=== PATIENT | female | born 1985 | race Caucasian/White ===

== ENCOUNTER 2022-12-02 07:42 | Outpatient (CLI) | payer OTHER ==
[2022-12-02 08:37] LABS: GTT GLUCOSE,FASTING 89 mg/dL (74-109)
== END 2022-12-02 07:43 | disposition home or self-care (01) ==
LOC: LAB 07:42
PROVIDERS: ATTEND Obstetrics & Gynecology
DX: O99.810 Abnormal glucose complicating pregnancy (principal); O09.519 Supervision of elderly primigravida, unspecified trimester; Z36.89 Encounter for other specified antenatal screening
CPT/HCPCS: 36415; 82951; 82952

== ENCOUNTER 2022-12-24 14:17 | Outpatient (CLI) | payer OTHER ==
[2022-12-24 14:31] LABS: HCT - HEMATOCRIT 37.1 % (37.0-47.0); HGB - HEMOGLOBIN 12.1 g/dL (12.0-16.0); MEAN CORPUSCULAR HEMOGLOBIN 28.1 pg (27.0-31.0); MEAN CORPUSCULAR HGB CONC 32.6 g/dL (32.0-36.0); MEAN CORPUSCULAR VOLUME 86.3 fL (81.0-99.0); MEAN PLATELET VOLUME 9.3 fL (7.9-10.8); RED BLOOD COUNT 4.3 10^6/uL (4.20-5.40); RED CELL DISTRIBUTION WIDTH 13.2 % (12.0-15.0); WHITE BLOOD COUNT 9.8 x10^3/uL (4.8-10.8)
[2022-12-24 14:55] LABS: CREATININE,URINE 129.3 mg/dL; PROTEIN/CREATININE RATIO,URINE 0.3 (<=0.2)
[2022-12-24 14:56] LABS: ALBUMIN 3.6 g/dL (3.2-5.5); BILIRUBIN,TOTAL 0.2 mg/dL (0.2-1.0); CALCIUM 9.5 mg/dL (8.5-10.3); CREATININE 0.5 mg/dL (0.6-1.3); POTASSIUM 3.8 mmol/L (3.5-4.5); TOTAL PROTEIN 7.1 g/dL (6.4-8.9)
== END 2022-12-24 14:18 | disposition home or self-care (01) ==
LOC: LAB 14:17
PROVIDERS: ATTEND Nurse Practitioner
DX: N02.8 Recurrent and persistent hematuria with other morphologic changes (principal)
CPT/HCPCS: 36415; 80053; 82570; 84156; 85027

== ENCOUNTER 2022-12-30 19:06 | Outpatient (CLI) | payer OTHER ==
--- NOTE | 2022-12-31 22:46 | Ultrasound Report ---
PROCEDURE: OB F/U or Repeat INDICATIONS: EGA NEPHROPATHY, ABNORMAL US OUTSIDE/PRIOR DATING DATA: Last menstrual period (LMP): 05/12/2022. LMP-based estimated date of delivery (ARMANDO): 02/16/2023. First dating scan (date and location): 12/30/2022. Estimated date of delivery (ARMANDO) from first dating scan: 02/16/2023. TECHNIQUE: Real-time scanning was performed of the fetus, with image documentation and biometric measurements. Endovaginal scanning: Not performed. COMPARISON: None available for review FINDINGS: General: A single living intrauterine gestation is present. Presentation: Transverse to maternal right Placenta: Placental position is fundal, without previa. Amniotic fluid index: 16.1 cm, within normal limits for gestational age. heart rate: 153 beats per minute. Maternal cervical canal: 3.7 cm long; normal length is 2.5 cm or more. biometrics: Biparietal diameter: 8.8 cm, 35 weeks and 4 days Head circumference: 32.7 cm, 37 weeks and 1 day Abdominal circumference: 31.0 cm, 35 weeks and 0 days Femur length: 2.8 cm, 35 weeks and 0 days Estimated gestational age from initial scan: 33 weeks and 1 day Composite gestational age from present scan: 35 weeks and 5 days Estimated weight and percentile: 2640 which correlates with the 95th percentile for gestational age. Measurement variability in biometric dating: +/- 10 days from 12-20 weeks gestation, +/- 2 weeks from 20-30 weeks gestation, +/- 3 weeks at 30 weeks gestation or more. Other: S/D ratios measure 1.91 at the placenta, 2.67 at the mid cord, and 3.04 at the insertio n. These are within normal limits for gestational age. IMPRESSION: Single living intrauterine gestation with estimated sonographic gestational age of appro ximately 35 weeks and 5 days versus approximately 33 weeks and 1 day by initial outside imaging. Inte rval growth is within normal limits. Estimated weight of approximately 26[address] the fetus within the 95th percentile. Four-quadrant ACACIA measuring 16.1 cm (62nd percentile) Normal cord Doppler waveforms and S/D ratios. Reviewed by: Elijah Mulligan MD on 12/31/2022 10:45 PM PDT Approved by: Elijah Mulligan MD on 12/31/2022 10:45 PM PDT Station ID: [id number]
== END 2022-12-30 19:07 | disposition home or self-care (01) ==
LOC: DI 19:06
PROVIDERS: ATTEND Nurse Practitioner
DX: O99.891 Other specified diseases and conditions complicating pregnancy (principal); N02.8 Recurrent and persistent hematuria with other morphologic changes; O28.3 Abnormal ultrasonic finding on antenatal screening of mother; Z3A.35 35 weeks gestation of pregnancy

== ENCOUNTER 2023-01-04 07:34 | Outpatient (CLI) | payer OTHER | END 2023-01-04 07:35 | disposition home or self-care (01) | LOC: LAB.R 07:34 | PROVIDERS: ATTEND Nurse Practitioner | DX: O12.13 Gestational proteinuria, third trimester (principal); O99.891 Other specified diseases and conditions complicating pregnancy; N02.8 Recurrent and persistent hematuria with other morphologic changes | CPT/HCPCS: 81599; 82570; 84156 ==

== ENCOUNTER 2023-01-19 17:04 | Outpatient (CLI) | payer OTHER ==
--- NOTE | 2023-01-20 12:13 | Ultrasound Report ---
PROCEDURE: OB Biophysical Profile INDICATIONS: OBESITY OUTSIDE/PRIOR DATING DATA: Last menstrual period (LMP): 05/12/2022. LMP-based estimated date of delivery (ARMANDO): 02/16/2023. First dating scan (date and location): 12/30/2022. Estimated date of delivery (ARMANDO) from first dating scan: 02/16/2023. The below data below was generated using the working ARMANDO of 02/16/2023 TECHNIQUE: Real-time scanning was performed of the fetus, with image documentation and biometric rod surements. Biophysical profile was also obtained. Endovaginal scanning: None COMPARISON: None. FINDINGS: General: A single living intrauterine gestation is present. Presentation: Breech Placenta: Placental position is anterior, without previa. Amniotic fluid index: 21.2 cm, normal for gestational age. heart rate: 150 beats per minute. Maternal cervical canal: Closed Estimated gestational age from initial scan: 36 week 0 day. Biophysical profile: Tone: 2 points. Movement: 2 points. Respiration: 0 points. Largest pocket of fluid: 2 points. Umbilical artery Doppler: 2.6, 2.7, 2.5 IMPRESSION: Single live intrauterine consistent with 36 week 0 day gestation. Biophysical profile score 6 out of 8. respiratory motion was observed during the exam. Unremarkable umbilical artery ratios Reviewed by: Paulino Peres MD on 01/20/2023 11:12 AM TAHMIN[facility] Approved by: Paulino Peres MD on 01/20/2023 11:12 AM TAHMINA Station ID: [id number]
== END 2023-01-19 17:05 | disposition home or self-care (01) ==
LOC: DI 17:04
PROVIDERS: ATTEND Obstetrics & Gynecology
DX: O99.213 Obesity complicating pregnancy, third trimester (principal); Z3A.36 36 weeks gestation of pregnancy

== ENCOUNTER 2023-01-20 08:00 | Outpatient (CLI) | payer OTHER | END 2023-01-20 23:59 | disposition home or self-care (01) | LOC: LAB.WC 08:00 | PROVIDERS: ATTEND Nurse Practitioner | DX: Z36.85 Encounter for antenatal screening for Streptococcus B (principal); O99.891 Other specified diseases and conditions complicating pregnancy; N02.8 Recurrent and persistent hematuria with other morphologic changes | CPT/HCPCS: 36415; 80053; 82570; 84156; 84550; 85025; 87081; 87181; 87797 ==

== ENCOUNTER 2023-01-20 14:21 | Outpatient (CLI) | payer OTHER ==
[2023-01-20 14:35] LABS: BASOPHILS % (AUTO) 0.1 %; EOSINOPHILS # (AUTO) 0.1 10^3/uL (0.0-0.7); EOSINOPHILS % (AUTO) 0.8 %; HCT - HEMATOCRIT 38.3 % (37.0-47.0); HGB - HEMOGLOBIN 12.8 g/dL (12.0-16.0); LYMPHOCYTES # (AUTO) 1.8 10^3/uL (1.5-3.5); LYMPHOCYTES % (AUTO) 17.2 %; MEAN CORPUSCULAR HEMOGLOBIN 28.3 pg (27.0-31.0); MEAN CORPUSCULAR HGB CONC 33.4 g/dL (32.0-36.0); MEAN CORPUSCULAR VOLUME 84.5 fL (81.0-99.0); MEAN PLATELET VOLUME 10.1 fL (7.9-10.8); MONOCYTES # (AUTO) 0.6 10^3/uL (0.0-1.0); MONOCYTES % (AUTO) 5.3 %; NEUTROPHILS # (AUTO) 8.1 10^3/uL (1.5-6.6); NEUTROPHILS % (AUTO) 76.2 %; PLT - PLATELET COUNT 241 10^3/uL (130-450); RED BLOOD COUNT 4.53 10^6/uL (4.20-5.40); RED CELL DISTRIBUTION WIDTH 13.9 % (12.0-15.0); WHITE BLOOD COUNT 10.6 x10^3/uL (4.8-10.8)
[2023-01-20 14:50] LABS: ALBUMIN 3.7 g/dL (3.2-5.5); ALBUMIN/GLOBULIN RATIO 1.2 (1.0-2.2); BILIRUBIN,TOTAL 0.2 mg/dL (0.2-1.0); CALCIUM 9.6 mg/dL (8.5-10.3); CREATININE 0.4 mg/dL (0.6-1.3); POTASSIUM 4.1 mmol/L (3.5-4.5); TOTAL PROTEIN 6.9 g/dL (6.4-8.9); URIC ACID 2.7 mg/dL (2.3-6.6)
[2023-01-20 15:33] LABS: CREATININE,URINE 50.9 mg/dL; PROTEIN/CREATININE RATIO,URINE 0.3 (<=0.2)
== END 2023-01-20 14:22 | disposition home or self-care (01) ==
LOC: LAB 14:21
PROVIDERS: ATTEND Nurse Practitioner
DX: N02.8 Recurrent and persistent hematuria with other morphologic changes (principal)
CPT/HCPCS: 36415; 80053; 82570; 84156; 84550; 85025

== ENCOUNTER 2023-01-28 07:05 | Inpatient (IN) | payer OTHER ==
[2023-01-28] MEDS ORDERED: SODIUM CHLORIDE FLUSH 0.9% 10 ML SYRINGE IVP PRN ×2 (07:42→07:43)
[2023-01-28] MEDS ORDERED: RHO(D) IMMUNE GLOBULIN 300 MCG SYRINGE IM PRN (07:42)
[2023-01-28] MEDS ORDERED: fentaNYL 100 MCG/2 ML VIAL IVP PRN ×2 (07:42→07:43)
[2023-01-28] MEDS ORDERED: TERBUTALINE 1 MG/ML VIAL SUBQ PRN ×2 (07:42→07:43)
[2023-01-28] MEDS ORDERED: ONDANSETRON 4 MG/2 ML VIAL IVP PRN (07:42)
[2023-01-28] MEDS ORDERED: TRANEXAMIC ACID IN NACL 1,000 MG/100 ML BAG IV PRN (07:43)
[2023-01-28] MEDS ORDERED: lidocaine 1% 20 ML MDV ID PRN (07:43)
[2023-01-28] MEDS ORDERED: hydrALAZINE INJ 20 MG/ML VIAL IVP PRN ×2 (07:43)
[2023-01-28] MEDS ORDERED: OXYTOCIN/SODIUM CHLORIDE 500 ML IV PRN (07:43)
[2023-01-28] MEDS ORDERED: LACTATED RINGERS 1,000 ML IV PRN (07:43)
[2023-01-28] MEDS ORDERED: miSOPROStoL 200 MCG TABLET PR PRN (07:43)
[2023-01-28] MEDS ORDERED: METHYLERGONOVINE 0.2 MG/ML VIAL IM PRN (07:43)
[2023-01-28] MEDS ORDERED: LABETALOL 20 MG/4 ML SYRINGE IVP PRN ×3 (07:43)
[2023-01-28] MEDS ORDERED: CARBOPROST TROMETHAMINE 250 MCG/ML AMP IM PRN (07:43)
[2023-01-28] MEDS ORDERED: NIFEdipine 10 MG CAPSULE PO PRN (07:43)
[2023-01-28] MEDS ORDERED: OXYTOCIN 10 UNIT/ML VIAL IM PRN (07:43)
[2023-01-28] MEDS ORDERED: miSOPROStoL 200 MCG TABLET BC PRN (07:43)
--- NOTE | 2023-01-28 07:51 | HISTORY & PHYSICAL EXAMINATION ---
Admit History - Visit Reason Visit Reason: Other (External cephalic version) - : 2 Parity: 0 Premature: 0 : 1 Complications This : positive: induced HTN, Other (breech presentation) Smoking Status: Never smoker - Mother's Labs Mother's Blood Type: positive: O Mother's RH: positive: Positive GBS: positive: Group B Strep Positive Rubella Status: positive: Non-immune - Other Maternal History Other Maternal History: HPI: Patient is a 37-year-old -0-1-0 at 37 weeks 2 days gestation presenting for external cephalic version for breech presentation. She also gestational hypertension and depending on success of the version will be induced or proceed with section.. She has good movement. Denies loss of fluid. No TAFOYA/BV or RUQP. No vaginal bleeding. Denies nausea and vomiting. Denies urinary urgency or dysuria. All other symptoms reviewed and were negative except per HPI. Course LMP: 05/12/22 ARMANDO by LMP: 02/16/23 US:08/11/22 @ 13w0d ARMANDO by US 02/16/2023 Final ARMANDO: 02/16/23 c/w LMP PROBLEMS: Gestational hypertension: Diagnosed at 37 weeks Breech presentation: Plan for external cephalic version on 01/28/2023. AMA: Aspirin since 12 weeks. Obesity: EFW 2640g, 95%. NSTs ordered for 37 weeks. SMA CARRIER: Partner is negative. IgA Nephropathy: Steroid resistant, early labs: Normal AST/ALT, platelets. Elevated 24-hour urine protein of 280 mg (repeat ordered 12/24/22). 12/24/22 protein to creatinine ratio was 0.3 Follow-up with MFM and nephrology (referrals placed 12/24) . Labs: 11/01/2022: Platelets 204, normal AST/ALT. Labs 12/24/22: PLT 230 AST/ALT normal. MFM and Neprhology consults pending suspect VSD 1st Trimester: Not seen on anatomy scan Repeat growth US at 32weeks ordered 12/24/22 Transfer from [facility]: No labs received, will try to get these. These may be MFM/nephrology notes as her typical record is not attached. Pre- Weight:257 BMI: 36.88 Blood type:O+ Antibody: negative CBC: PLT 254 HCT 35.6 HGB 11.6 RUB: NOT immune (2.35) VZV: immune (1203) HBsAg: N-R HepC: N-R RPR/AB-EIA:Negative HIV: Denies in self and partner PAP:Normal 2021 GC/CT: negative HSV: denies self/partner Genetic testing:NIPT - neg AFP- Negative in chart note Covid:3x Moderna 1x pfizer Flu:2021 FAS:09/29/22 Placenta:Anterior and high Cord:3VC ACACIA:Normal EFW:368g 80th%ile 50gm OGCT: 171 on 11/01 3HR GTT: fast 89, 1 hr 172, 2hr 130, 3 hr 109 TDAP:11/25 Breast Pump: 11/25 Antibody screen: 3rd trimester: 11/01/22 PLT 254 H/H 11.6/35.6 3rd trimester HIV GBS: Positive Delivery plan: MOD:ECV on 01/28/2023, proceed with induction of labor if successful or section if not. Contraception:Unsure PMH IgA nephropathy SMA carrier, father the baby is negative PSH Denies OB History -0-1-0 1. Early spontaneous Denies tobacco, alcohol, drugs Family History Mother: Hypertension Father: Cancer Allergies Bactrim: Shortness of breath Amoxicillin: Hives Medications vitamins 81 mg aspirin Physical exam: General: Alert, oriented, no acute distress Head: Normal cephalic atraumatic Eyes: PERRLA, extraocular motions intact. Respiratory: Normal rate of respiration. No accessory muscle use, normal respiratory effort. Cardiovascular: Regular rate and rhythm Abdomen: Gravid, nontender, nondistended Extremities: Normal range of motion Neuro: Oriented x3. Normal movements Psych: Appropriate mood and affect. Normal judgment and insight FHT: 150 beats per baseline, moderate variability, accelerations present, no decelerations. Reactive NST [place]: Irregular Plan 37-year-old -0-1-0 at 37 weeks 2 days gestation with breech presentation admitted for version 1. malpresentation -Plan for external cephalic version. Discussed risk, benefits, alternatives of this and patient would like to proceed. -We will give terbutaline for uterine relaxant. -Declines need for regional anesthesia, will consider later 2. 37 weeks gestation -Plan for induction of labor or section after determining outcome of external cephalic version. 3. Gestational hypertension -Blood pressure elevated but nonsevere. -Repeat labs pending 4. IgA nephropathy -Has been stable during Meds/Allgy - Allergies Allergies/Adverse Reactions: Allergies Allergy/AdvReac Type Severity Reaction Status Date / Time amoxicillin Allergy Hives Verified 01/28/23 07:50 sulfamethoxazole Allergy Anaphylaxis Verified 01/28/23 07:50 [From Bactrim] trimethoprim [From Bactrim] Allergy Anaphylaxis Verified 01/28/23 07:50 Plan for Labor - Plan For Labor I expect patient to be DC'd or transferred within 96 hours.: Yes
[2023-01-28 07:59] LABS: BASOPHILS % (AUTO) 0.1 %; EOSINOPHILS # (AUTO) 0.1 10^3/uL (0.0-0.7); EOSINOPHILS % (AUTO) 1.3 %; HCT - HEMATOCRIT 36.1 % (37.0-47.0); HGB - HEMOGLOBIN 12.2 g/dL (12.0-16.0); LYMPHOCYTES # (AUTO) 2.3 10^3/uL (1.5-3.5); LYMPHOCYTES % (AUTO) 23.2 %; MEAN CORPUSCULAR HEMOGLOBIN 28.2 pg (27.0-31.0); MEAN CORPUSCULAR HGB CONC 33.8 g/dL (32.0-36.0); MEAN CORPUSCULAR VOLUME 83.4 fL (81.0-99.0); MEAN PLATELET VOLUME 10.6 fL (7.9-10.8); MONOCYTES # (AUTO) 0.7 10^3/uL (0.0-1.0); MONOCYTES % (AUTO) 6.6 %; NEUTROPHILS # (AUTO) 6.9 10^3/uL (1.5-6.6); NEUTROPHILS % (AUTO) 68.3 %; PLT - PLATELET COUNT 221 10^3/uL (130-450); RED BLOOD COUNT 4.33 10^6/uL (4.20-5.40)
[2023-01-28 08:08] LABS: ALBUMIN 3.3 g/dL (3.2-5.5); ALBUMIN/GLOBULIN RATIO 0.9 (1.0-2.2); BILIRUBIN,TOTAL 0.3 mg/dL (0.2-1.0); CALCIUM 8.8 mg/dL (8.5-10.3); CREATININE 0.4 mg/dL (0.4-1.0); POTASSIUM 3.7 mmol/L (3.5-5.0); TOTAL PROTEIN 6.9 g/dL (6.7-8.2)
[2023-01-28 08:17] LABS: CREATININE,URINE 110.4 mg/dL; PROTEIN/CREATININE RATIO,URINE 0.2 (<=0.2)
--- NOTE | 2023-01-28 08:26 | PROCEDURE REPORT ---
Hospitalist Procedure Note - Procedure Note Procedure Note: Procedure date: 01/28/2023 Procedure: External cephalic version Indication: Breech presentation, 37 weeks gestation, gestational hypertension Patient consent: Patient consented to the risks of external cephalic version including the risk of heart rate changes, bleeding, placental abruption, rupture membranes, emergency section, cord prolapse, hemorrhage, stillbirth. Discussed the benefits [place] avoiding a planned section. Discussed we are not successful we will abandon procedure and plan a section. Patient agrees to this and desires to proceed. Anesthesia: None Complications: None Estimated blood loss: None Postop diagnosis: Successful external cephalic version, cephalic presentation, 37 weeks gestation, gestational hypertension Procedure summary: Patient is a 37-year-old -0-1-0 at 37 weeks 2 days gestation who presented for an external cephalic version for breech presentation. She was taken to the labor room and had a reactive NST. Under ultrasound guidance, the fetus was noted to be in breech presentation with head to maternal upper right and in complete breech. The patient was given terbutaline for uterine relaxation. Using gentle, steady pressure, the head was rotated in a forward roll in a counterclockwise direction as the buttocks was lifted out of the pelvis. The procedure lasted less than 5 minutes Ultrasound confirmed cephalic presentation. Patient was monitored with a reactive NST after the procedure. I appreciate the assistance of DIANA Staples during this procedure, and the assistance during the case was instrumental to the patient's wellbeing.
[2023-01-28] MEDS: miSOPROStoL 100 MCG TABLET BC SCH ×3 (09:33→19:31)
--- NOTE | 2023-01-28 18:11 | PROVIDER PROGRESS NOTE ---
Labor Progress Note - Uterine Monitoring Uterine Monitoring Mode: positive: External toco Contraction Frequency (min/apart): Quiescent Uterine Resting Tone: positive: Soft - Monitoring Monitor Mode: positive: External ultrasound Heart Rate Baseline: 145 Heart Rate Variability: positive: Absent; amplitude undetectable Accelerations: positive: Present, 15x15 Decelerations: positive: None Strip Review: positive: Category I - Labor Progress Note Labor Progress Note/Additional Text: Patient comfortable at this time. Continue with misoprostol induction. Will receive third dose shortly. Category 1 tracing. Epidural at patient's request if contractions become painful.
[2023-01-28] MEDS: miSOPROStoL 100 MCG TABLET VG SCH (23:37)
[2023-01-29] MEDS: LACTATED RINGERS 1,000 ML IV SCH (02:30)
[2023-01-29] MEDS: miSOPROStoL 100 MCG TABLET VG SCH ×3 (08:37→18:22)
--- NOTE | 2023-01-29 12:15 | PROVIDER PROGRESS NOTE ---
Labor Progress Note - Uterine Monitoring Uterine Monitoring Mode: positive: External toco Contraction Frequency (min/apart): 2-5 Contraction Intensity: positive: Mild Uterine Resting Tone: positive: Soft - Monitoring Monitor Mode: positive: External ultrasound Heart Rate Baseline: 145 Heart Rate Variability: positive: Moderate (6-25 bmp) Accelerations: positive: Present, 15x15 Decelerations: positive: None Strip Review: positive: Category I - Labor Progress Note Labor Progress Note/Additional Text: Patient 1 cm last check. Still very comfortable and denies pain from contractions. Previous dose of misoprostol was delayed due to frequent uterine activity. This is hard to trace on the monitor, and sometimes appears like frequent uterine activity, but other times contractions appear different than the activity she is having. Regardless, these are very mild and likely inconsequential. Due to the frequency of contractions, if we are unable to place another dose of misoprostol, we will proceed with cervical ripening balloon.
--- NOTE | 2023-01-29 23:23 | PROVIDER PROGRESS NOTE ---
Labor Progress Note - Uterine Monitoring Uterine Monitoring Mode: positive: External toco Contraction Frequency (min/apart): 2-8 Uterine Resting Tone: positive: Soft - Monitoring Monitor Mode: positive: External ultrasound Heart Rate Baseline: 135 Heart Rate Variability: positive: Moderate (6-25 bmp) Accelerations: positive: Present, 15x15 Decelerations: positive: None - Labor Progress Note Labor Progress Note/Additional Text: Have been speaking with patient throughout the day. Attempted cervical ripening baloon earlier today without success. Restarted misoprostol. Has not had 7 doses of vaginal misoprostol without much change. Will switch to buccal and see if effect is better. Consider increasing to 50mcg if not causing tachysystole. Discussed oxytocin induction, but Magana score still unfavorable, although will try before section. Will also consider stopping induction and returning the following day if not changing by tomorrow.
[2023-01-29] MEDS ORDERED: miSOPROStoL 100 MCG TABLET BC ONE (23:45)
[2023-01-30] MEDS: SODIUM CHLORIDE FLUSH 0.9% 10 ML SYRINGE IVP SCH (03:13)
[2023-01-30] MEDS: miSOPROStoL 100 MCG TABLET BC SCH (04:15)
[2023-01-30] MEDS: LACTATED RINGERS 1,000 ML IV SCH ×2 (10:44→19:28)
[2023-01-30] MEDS: OXYTOCIN/SODIUM CHLORIDE 500 ML IV SCH (10:45)
--- NOTE | 2023-01-30 12:05 | PROVIDER PROGRESS NOTE ---
Labor Progress Note - Uterine Monitoring Uterine Monitoring Mode: positive: External toco Contraction Frequency (min/apart): Irregular Contraction Intensity: positive: Mild Uterine Resting Tone: positive: Soft - Monitoring Monitor Mode: positive: External ultrasound Heart Rate Baseline: 130 Heart Rate Variability: positive: Moderate (6-25 bmp) Accelerations: positive: Present, 15x15 Decelerations: positive: None - Vaginal Exam Dilation (in cm): 1 Effacement (%): 30 Station: -3 - Labor Progress Note Labor Progress Note/Additional Text: Patient has made minimal change with misoprostol. She has received 8 doses. Switch to oxytocin and will hope that baby's head comes down. If it does descend we can retry cervical ripening balloon for further cervical ripening. If she dilates well on oxytocin, will continue with oxytocin alone. Overall she is in good spirits still tolerating induction well.
--- NOTE | 2023-01-30 21:28 | PROVIDER PROGRESS NOTE ---
Labor Progress Note - Uterine Monitoring Uterine Monitoring Mode: positive: External toco Contraction Frequency (min/apart): 2-5 Contraction Intensity: positive: Mild Uterine Resting Tone: positive: Soft - Monitoring Monitor Mode: positive: External ultrasound Heart Rate Baseline: 140 Heart Rate Variability: positive: Moderate (6-25 bmp) Accelerations: positive: Present, 15x15 Decelerations: positive: None Strip Review: positive: Category I - Vaginal Exam Dilation (in cm): 1 Effacement (%): 40 Station: -2 Cervical Position: Midposition - Labor Progress Note Labor Progress Note/Additional Text: Patient on 11 milliunits of oxytocin. Attempted to place balloon again, but was unable. Patient understandably frustrated. We will continue with oxytocin, now at approximately 12 hours. We will give her 24 hours on oxytocin but this is looking more and more like induction may not be successful. Blood pressure does remain nonsevere. No symptoms of preeclampsia.
[2023-01-31] MEDS: LACTATED RINGERS 1,000 ML IV SCH ×10 (03:59→23:58)
--- NOTE | 2023-01-31 08:13 | PROVIDER PROGRESS NOTE ---
Labor Progress Note - Uterine Monitoring Uterine Monitoring Mode: positive: External toco Contraction Frequency (min/apart): 2-3 Contraction Intensity: positive: Moderate to strong Uterine Resting Tone: positive: Soft - Monitoring Monitor Mode: positive: External ultrasound Heart Rate Baseline: 135 Heart Rate Variability: positive: Moderate (6-25 bmp) Accelerations: positive: Present, 15x15 Decelerations: positive: None Strip Review: positive: Category I - Vaginal Exam Dilation (in cm): 1 Effacement (%): 40 Station: -3 - Labor Progress Note Labor Progress Note/Additional Text: Patient has had no cervical change, but feels remains category 1. Discussed continuing with oxytocin, but at this point, she has had 8 doses of misoprostol followed by 24 hours of oxytocin and 2 failed balloon attempts. I would advise section for failed induction at this point. She is at increased risk for hemorrhage and this is nonemergent, so we will delay surgery until this afternoon to allow some rest from oxytocin and hopefully decrease her hemorrhage risk. Patient will be n.p.o. Plan for normal preoperative care. section was recommended. Risks, benefits and alternatives were discussed including but not limited to infection, bleeding that may require blood products or hysterectomy for life saving measures, injury to surrounding organs including but not limited to bowel, bladder, ureters, tubes and ovaries and/or the baby. Should injury occur it could require longer/additional surgery to repair. The patient stated understanding and desired to proceed. All questions were answered posed by patient.
[2023-01-31] MEDS: SODIUM CHLORIDE FLUSH 0.9% 10 ML SYRINGE IVP SCH ×5 (09:51→09:57)
[2023-01-31] MEDS: miSOPROStoL 100 MCG TABLET BC SCH ×4 (09:52→09:57)
[2023-01-31] MEDS: OXYTOCIN/SODIUM CHLORIDE 500 ML IV SCH (11:28)
--- NOTE | 2023-01-31 14:35 | ANESTHESIA ---
Pre-Anesthesia VS, & Labs - Diagnosis failure to progress - Procedure Vital Signs: Temp Pulse Resp BP Pulse Ox O2 Flow Rate 36.8 C 104 H 16 134/82 H 01/28/23 09:51 01/28/23 09:51 01/28/23 09:51 01/28/23 09:51 Height: 5 ft 10 in Weight (kg): 127.006 kg Body Mass Index: 40.1 BMI Classification: Morbidly Obese - NPO >8 hours - Is Patient ?: Yes - Lab Results Current Lab Results: Laboratory Tests 01/28/23 08:52: Blood Type Recheck O POSITIVE 01/28/23 07:25: Sodium 135, Potassium 3.7, Chloride 106, Carbon Dioxide 21, Anion Gap 8.0, BUN 7, Creatinine 0.4, Estimated GFR (MDRD) 181, Glucose 91, Calcium 8.8, Total Bilirubin 0.3, AST 23, ALT 25, Alkaline Phosphatase 87, Total Protein 6.9, Albumin 3.3, Globulin 3.6, Albumin/Globulin Ratio 0.9 L 01/28/23 07:25: WBC 10.0, RBC 4.33, Hgb 12.2, Hct 36.1 L, MCV 83.4, MCH 28.2, MCHC 33.8, RDW 14.0, Plt Count 221, MPV 10.6, Neut # (Auto) 6.9 H, Lymph # (Auto) 2.3, Tama # (Auto) 0.7, Eos # (Auto) 0.1, Baso # (Auto) 0.0, Absolute Nucleated RBC 0.00, Nucleated RBC % 0.0 01/28/23 07:25: Blood Type O POSITIVE, Antibody Screen NEGATIVE Lab results reviewed: Yes Fish Bones: 01/28/23 07:25 01/28/23 07:25 Home Medications and Allergies Active Medications Carboprost Tromethamine (Carboprost Tromethamine 250 Mcg/Ml Amp) 250 mcg IM .ONCE PRN PRN Reason: Hemorrhage Fentanyl (Fentanyl 100 Mcg/2 Ml Vial) 50 mcg IVP .ONCE PRN PRN Reason: Severe Pain (Score 7-10) Fentanyl (Fentanyl 100 Mcg/2 Ml Vial) 50 mcg IVP Q1H PRN PRN Reason: Severe Pain (score 7-10) Hydralazine HCl (Hydralazine Inj 20 Mg/Ml Vial) 10 mg IVP .ONCE PRN; Protocol PRN Reason: SBP> or= 160 OR DBP> or= 110 Hydralazine HCl (Hydralazine Inj 20 Mg/Ml Vial) 5 - 10 mg IVP Q20M PRN; Protocol PRN Reason: SBP> or= 160 OR DBP> or= 110 Oxytocin/Sodium Chloride (Pitocin/Sodium Chloride) 500 mls @ 999 mls/hr IV PRN PRN; Protocol PRN Reason: POST- HEMORR PREVENTION Tranexamic Acid (Tranexamic 1,000 Mg/100ml-Nacl) 1,000 mg in 100 mls @ 600 mls/hr IV Q30M PRN PRN Reason: EBL >1200mL and within 3hr Lactated Ringer's (Lr) 1,000 mls @ 999 mls/hr IV PRN PRN PRN Reason: PER PHYSICIAN ORDER Lactated Ringer's (Lr) 1,000 mls @ 125 mls/hr IV .Q8H HAZEL Last Admin: 01/31/23 13:37 Dose: 125 mls/hr Labetalol HCl (Labetalol 20 Mg/4 Ml Syringe) 20 mg IVP .ONCE PRN; Protocol PRN Reason: SBP> or= 160 OR DBP> or= 110 Labetalol HCl (Labetalol 20 Mg/4 Ml Syringe) 20 - 80 mg IVP Q10M PRN; Protocol PRN Reason: SBP> or= 160 OR DBP> or= 110 Labetalol HCl (Labetalol 20 Mg/4 Ml Syringe) 20 - 40 mg IVP Q10M PRN; Protocol PRN Reason: SBP> or= 160 OR DBP> or= 110 Methylergonovine Maleate (Methylergonovine 0.2 Mg/Ml Vial) 0.2 mg IM .ONCE PRN PRN Reason: Hemorrhage Misoprostol (Misoprostol 200 Mcg Tablet) 600 mcg BC .ONCE PRN PRN Reason: Hemorrhage Misoprostol (Misoprostol 200 Mcg Tablet) 800 mcg LA .ONCE PRN PRN Reason: Hemorrhage Nifedipine (Nifedipine 10 Mg Capsule) 10 - 20 mg PO Q20M PRN; Protocol PRN Reason: SBP> or= 160 OR DBP> or= 110 Ondansetron HCl (Ondansetron 4 Mg/2 Ml Vial) 4 mg IVP .ONCE PRN PRN Reason: Nausea / Vomiting Oxytocin (Oxytocin 10 Unit/Ml Vial) 10 unit IM .ONCE PRN PRN Reason: Step One if no IV access. Rho Immune Globulin (Rho(D) Immune Globulin 300 Mcg Syringe) 300 mcg IM .ONCE PRN PRN Reason: For Rh incompatibilty. Sodium Chloride (Sodium Chloride Flush 0.9% 10 Ml Syringe) 10 ml IVP PRN PRN PRN Reason: NEEDED PER PROVIDER ORDERS Terbutaline Sulfate (Terbutaline 1 Mg/Ml Vial) 0.25 mg SUBQ .ONCE PRN PRN Reason: Breech presentation Last Admin: 01/28/23 08:00 Dose: 0.25 mg Terbutaline Sulfate (Terbutaline 1 Mg/Ml Vial) 0.25 mg SUBQ .ONCE PRN PRN Reason: Tachystole Allergies/Adverse Reactions: Allergies Allergy/AdvReac Type Severity Reaction Status Date / Time amoxicillin Allergy Hives Verified 01/28/23 07:50 sulfamethoxazole Allergy Anaphylaxis Verified 01/28/23 07:50 [From Bactrim] trimethoprim [From Bactrim] Allergy Anaphylaxis Verified 01/28/23 07:50 Anes History & Medical History - Anesthetic History Anesthesia Complications: reports: No previous complications Family history of Anesthesia Complications: Denies Family history of Malignant Hyperthermia: Denies - Medical History Cardiovascular: reports: None Pulmonary: reports: Asthma (childhood) Gastrointestinal: reports: GERD (rare symptoms) Urinary: reports: None Neuro: reports: None Musculoskeletal: reports: None Endocrine/Autoimmune: reports: None Blood Disorders: reports: None Skin: reports: None Smoking Status: Never smoker - Obstetrical History : 2 Parity: 0 Complications: reports: induced HTN, Other (breech presenta tion) Exam General: Alert, Oriented x3, Cooperative Dental: WNL Mouth Openin Fingerbreadth Neck Mobility: Normal Mallampati classification: II Thyromental Distance: 4-6 cm Respiratory: Lungs clear Cardiovascular: Regular rate Plan Anesthesia Type: Spinal Consent for Procedure(s) Verified and Reviewed: Yes Code Status: Attempt Resuscitation ASA classification: 3-Severe systemic disease Is this case an emergency?: No
[2023-01-31] MEDS ORDERED: fentaNYL 100 MCG/2 ML VIAL IT ONE (14:45)
[2023-01-31] MEDS ORDERED: MORPHINE PF 5 MG/10 ML VIAL ONE (14:46)
[2023-01-31] MEDS ORDERED: fentaNYL 100 MCG/2 ML VIAL ONE (14:46)
[2023-01-31] MEDS ORDERED: MORPHINE PF 5 MG/10 ML VIAL IT ONE (14:50)
[2023-01-31] MEDS ORDERED: diphenhydrAMINE INJ 50 MG/ML VIAL IVP PRN (15:06)
[2023-01-31] MEDS ORDERED: NALOXONE 0.4 MG/ML VIAL IVP PRN ×2 (15:06→15:07)
[2023-01-31] MEDS ORDERED: METOCLOPRAMIDE 10 MG/2 ML VIAL IVP PRN ×2 (15:06→15:07)
[2023-01-31] MEDS ORDERED: ePHEDrine 50 MG/ML VIAL IVP PRN ×2 (15:06→15:07)
[2023-01-31] MEDS ORDERED: ONDANSETRON 4 MG/2 ML VIAL IVP PRN ×2 (15:06→15:07)
[2023-01-31] MEDS ORDERED: NALBUPHINE 10 MG/ML AMP IVP PRN (15:06)
[2023-01-31] MEDS ORDERED: fentaNYL 100 MCG/2 ML VIAL IVP PRN (15:07)
[2023-01-31] MEDS ORDERED: HYDROmorphone 0.5 MG/0.5 ML SYRINGE IVP PRN (15:07)
[2023-01-31] MEDS ORDERED: MORPHINE 2 MG/ML CARPUJECT IVP PRN (15:07)
[2023-01-31] MEDS ORDERED: ATROPINE ABBOJECT 1 MG/10 ML SYRINGE IVP PRN (15:07)
[2023-01-31] MEDS ORDERED: METHYLERGONOVINE 0.2 MG/ML VIAL ONE ×2 (15:36→16:05)
[2023-01-31] MEDS ORDERED: CARBOPROST TROMETHAMINE 250 MCG/ML AMP IM ONE ×2 (15:39→15:47)
[2023-01-31] MEDS ORDERED: LACTATED RINGERS 1,000 ML IV SCH (16:00)
[2023-01-31] MEDS ORDERED: miSOPROStoL 200 MCG TABLET ONE (16:05)
[2023-01-31] MEDS ORDERED: LACTATED RINGERS 1,000 ML IV ONE (16:15)
[2023-01-31] MEDS ORDERED: SIMETHICONE CHEW 80 MG TABLET PO PRN (16:16)
[2023-01-31] MEDS ORDERED: OXYTOCIN/SODIUM CHLORIDE 500 ML IV PRN (16:16)
[2023-01-31] MEDS ORDERED: SODIUM CHLORIDE FLUSH 0.9% 10 ML SYRINGE IVP PRN (16:16)
[2023-01-31] MEDS ORDERED: ONDANSETRON ODT 4 MG TABLET TL PRN ×2 (16:16)
[2023-01-31] MEDS ORDERED: oxyCODONE 5 MG TABLET PO PRN (16:16)
--- NOTE | 2023-01-31 16:31 | OPERATIVE REPORT ---
Operative Report - General Admit Date: 01/30/23 Procedure Date: 01/31/23 Planned Procedure: Primary low-transverse section Pre-Op Diagnosis: Failed induction, gestational hypertension, 37 weeks gestation Procedure Performed: Primary low-transverse section Post Op Diagnosis: Status post primary low-transverse section, delivery of live singl - Procedure Note Primary Surgeon: Juwan Seymour MD Secondary Surgeon: DIANA Huizar Anesthesia Provider: Abilio Boone CRNA Anesthesia Technique: Spinal Pathology: None IV Fluids (mL): 900 Estimated Blood Loss (mL): 700 Urine Output (mL): 200 Findings: Normal-appearing uterus, tubes, ovaries. Complications: None - Other Other Information/Narrative: Patient was admitted at 37 weeks for external cephalic version and gestational hypertension and external cephalic version was successful, but then had 2 days of unsuccessful cervical ripening followed by 24 hours of oxytocin and on day 3, after no progress, we decided on primary low-transverse section for failed induction. Prior to being taken to the OR, 3 g of cefazolin was administered. The patient was taken to the operating room where regional anesthesia was found to be adequate. She was then prepared and draped in the usual sterile fashion in the dorsal supine position with a leftward tilt displacing the uterus. Calderon was draining to gravity. SCDs were on bilateral lower extremities. A pfannenstiel skin incision was then made with the scalpel and carried through to the underlying layer of fascia. The fascia was incised in the midline and the incision extended laterally with the Kaiser scissors. The superior aspect of the facial incision was then grasped with the Laura clamps, elevated and the underlying rectus muscles dissected off sharply. Attention was then turned to the inferior aspect of this incision which in a similar fashion was grasped, elevated with the Laura clamps and the rectus muscle dissected off sharply. The rectus muscles were in the midline. The peritoneum identified, grasped with the pick-ups and entered sharply with the Metzenbaum scissors. The peritoneal incision was then extended superiorly and inferiorly with good visualization of the bladder. The bladder blade was inserted. The vesicouterine peritoneum was identified, grasped with the pick-ups, and entered sharply with Metzenbaum scissors. This incision was then extended laterally and the bladder flap created digitally. The bladder blade was reinserted. The lower uterine segment was identified and incised in a transverse fashion with the scalpel. The uterine incision was then extended bluntly laterally. Artificial rupture of membranes demonstrated clear fluid. The bladder blade was removed. The fetus was in a cephalic presentation. The infants head delivered atraumatically. The anterior shoulders were delivered followed by the posterior shoulders then the remainder of the body. The infants mouth and nose were bulb suctioned. The umbilical cord was clamped times two and cut. The infant was handed to the pediatric team. The placenta was removed with gentle traction. Oxytocin was added to the IV fluid and was allowed to run freely. The uterus was exteriorized and cleared of all clots and debris. The uterine incision was inspected and found to be without any extensions and was repaired with 0 Vicryl in a running, locked fashion. A second imbricating layer was performed. An additional [id number] stitch was required for hemostasis at the right apex. Upon inspection, the repaired hysterotomy was found to be hemostatic. The uterus was atonic frequently through the procedure and despite oxytocin remained intermittently atonic. She received 200 mcg of Methergine followed by 250 mcg of Hemabate. Despite atony, there was not a significant blood loss. After hemostasis was noted and at the end of the repair, the uterus was returned to the abdomen. The gutters were cleared of all clots and debris. The muscle layer was examined and found to be hemostatic. The fascia was reapproximated with 0 Vicryl in a running fashion. The subcutaneous tissue was closed with 2-0 Vicryl. The skin was closed in a subcuticular fashion with 4-0 Monocryl. The patient tolerated the procedure well. Sponge, lap and needle counts were correct times three. The patient was taken to the recovery room in stable condition. I appreciate the assistance of DIANA Huizar during this procedure, and the assistance in retraction, visualization, dissection, and overall assistance during the case were instrumental to the patient's wellbeing. APGARs: 8/9 weight: Pending at this time
[2023-01-31] MEDS ORDERED: SODIUM CHLORIDE FLUSH 0.9% 10 ML SYRINGE IVP SCH (17:00)
[2023-01-31] MEDS: ACETAMINOPHEN 500 MG TABLET PO SCH (17:13)
[2023-01-31] MEDS: KETOROLAC 30 MG/ML VIAL IVP SCH ×2 (17:15→22:26)
--- NOTE | 2023-01-31 18:12 | ANESTHESIA POST OP EVALUATION ---
Anesthesia Post Eval - Post Anesthesia Eval Vitals: Last Vital Signs Temp 36.6 C 01/31/23 17:21 Pulse 70 01/31/23 17:21 Resp 16 01/31/23 17:21 BP 119/71 01/31/23 17:21 Pulse Ox 99 01/31/23 16:59 O2 Flow Rate CV Function Including HR & BP: Stable Pain Control: Satisfactory Nausea & Vomiting: Negative Mental Status: Baseline Respiratory Status: Airway Patent Hydration Status: Satisfactory Anesthesia Complications: None
[2023-02-01] MEDS: ACETAMINOPHEN 500 MG TABLET PO SCH ×3 (01:42→17:53)
[2023-02-01] MEDS: KETOROLAC 30 MG/ML VIAL IVP SCH ×2 (04:45→10:55)
[2023-02-01 05:51] LABS: BASOPHILS % (AUTO) 0.1 %; EOSINOPHILS # (AUTO) 0.1 10^3/uL (0.0-0.7); EOSINOPHILS % (AUTO) 0.7 %; HGB - HEMOGLOBIN 10.4 g/dL (12.0-16.0); LYMPHOCYTES # (AUTO) 1.3 10^3/uL (1.5-3.5); LYMPHOCYTES % (AUTO) 12.5 %; MEAN CORPUSCULAR HEMOGLOBIN 27.7 pg (27.0-31.0); MEAN CORPUSCULAR HGB CONC 32.5 g/dL (32.0-36.0); MEAN CORPUSCULAR VOLUME 85.1 fL (81.0-99.0); MEAN PLATELET VOLUME 10.5 fL (7.9-10.8); MONOCYTES # (AUTO) 0.7 10^3/uL (0.0-1.0); MONOCYTES % (AUTO) 6.6 %; NEUTROPHILS # (AUTO) 8.2 10^3/uL (1.5-6.6); NEUTROPHILS % (AUTO) 79.7 %; PLT - PLATELET COUNT 184 10^3/uL (130-450); RED BLOOD COUNT 3.76 10^6/uL (4.20-5.40); WHITE BLOOD COUNT 10.2 x10^3/uL (4.8-10.8)
[2023-02-01] MEDS: LACTATED RINGERS 1,000 ML IV SCH ×2 (09:41→09:42)
[2023-02-01] MEDS: CALCIUM CARBONATE CHEW 500 MG TABLET PO SCH ×3 (09:41→22:00)
[2023-02-01] MEDS: DOCUSATE SODIUM 100 MG CAPSULE PO SCH ×3 (09:41→22:00)
--- NOTE | 2023-02-01 10:36 | PROVIDER PROGRESS NOTE ---
Subjective - Prog Note Date Prog Note Date: 02/01/23 Prog Note Time: 10:35 - Subjective Subjective: Subjective Patient reports she is doing well. Lochia appropriate. Denies heavy bleeding. Ambulating. Pelvic and abdominal pain well-controlled. Tolerating oral intake. Diet: Regular. Voiding without difficulty. Passing flatus. Denies BM. Patient is bonding with baby in room Breast feeding going well. Denies feeling lightheaded, dizzy or excessively fatigued. Control: Declines need Objective General: Alert, oriented, no apparent distress. Cardiovascular: Regular rate. Regular rhythm. Lungs: No increased work of breathing. Abdomen: Uterus firm. Below umbilicus. No guarding or rebound. Extremities: No pain on palpation. No cords palpated. Distal pulses intact. Incision: Bandage in place. Assessment and Plan day 1. -Routine care -Anticipate discharge tomorrow Status post primary low-transverse section -Pain well controlled. Encouraged light activity. We will remove bandage later today. -Did have significant uterine atony but no significant bleeding yesterday. Doing well now. Objective - Vital Signs/Intake & Output Vital Signs: Vital Signs x48h Temp Pulse Resp BP BP Pulse Ox 02/01/23 08:21 98.1 F 83 18 113/62 02/01/23 06:08 98 02/01/23 06:07 98.1 F 75 14 114/66 95 02/01/23 02:50 97.9 F 86 16 112/68 97 Intake & Output: Intake & Output 01/29/23 01/30/23 01/31/23 02/01/23 23:59 23:59 23:59 23:59 Intake Total 1000 5562.465 9216.651 1460 Output Total 975 2485 Balance 1000 1747.844 9713.651 -1025 - Lab Results Fish Bones: 02/01/23 05:16 01/28/23 07:25 Other Labs: Lab Results x24hrs 02/01/23 Range/Units 05:16 WBC 10.2 (4.8-10.8) x10^3/uL RBC 3.76 L (4.20-5.40) 10^6/uL Hgb 10.4 L (12.0-16.0) g/dL Hct 32.0 L (37.0-47.0) % MCV 85.1 (81.0-99.0) fL MCH 27.7 (27.0-31.0) pg MCHC 32.5 (32.0-36.0) g/dL RDW 14.0 (12.0-15.0) % Plt Count 184 (130-450) 10^3/uL MPV 10.5 (7.9-10.8) fL Neut # (Auto) 8.2 H (1.5-6.6) 10^3/uL Lymph # (Auto) 1.3 L (1.5-3.5) 10^3/uL Rhea # (Auto) 0.7 (0.0-1.0) 10^3/uL Eos # (Auto) 0.1 (0.0-0.7) 10^3/uL Baso # (Auto) 0.0 (0.0-0.1) 10^3/uL Absolute Nucleated RBC 0.00 x10^3/uL Nucleated RBC % 0.0 /100WBC
[2023-02-01] MEDS: IBUPROFEN 600 MG TABLET PO SCH ×2 (16:50→22:00)
[2023-02-02] MEDS: ACETAMINOPHEN 500 MG TABLET PO SCH ×3 (01:38→18:32)
[2023-02-02] MEDS: IBUPROFEN 600 MG TABLET PO SCH ×3 (06:00→18:33)
[2023-02-02] MEDS: DOCUSATE SODIUM 100 MG CAPSULE PO SCH ×2 (08:55→22:14)
[2023-02-02] MEDS ORDERED: LIDOCAINE PATCH 5% TOP PRN (13:41)
--- NOTE | 2023-02-02 15:01 | PROVIDER PROGRESS NOTE ---
Subjective - Prog Note Date Prog Note Date: 02/02/23 Prog Note Time: 14:00 - Subjective Pt reports feeling: Improved Subjective: Comfortable currently. Reports back discomfort. Has not taken oxycodone. Asking to try lidocaine patch for her back pain. Appropriate lochia. Ambulating. Voiding. Pos BM. Tolerating regular diet. , pumping and formula feeding. Mood is good. Objective - Vital Signs/Intake & Output Reviewed Vital Signs: Yes Vital Signs: Vital Signs x48h Temp Pulse Resp BP Pulse Ox 02/02/23 12:17 98.6 F 87 18 129/77 99 02/02/23 08:45 98.1 F 74 16 137/78 H 99 Intake & Output: Intake & Output 01/30/23 01/31/23 02/01/23 02/02/23 23:59 23:59 23:59 23:59 Intake Total 4769.805 9411.651 1460 Output Total 975 2685 Balance 0077.124 4786.651 1225 - Objective General Appearance: positive: No acute distress Eyes Bilateral: positive: EOMI Respiratory: positive: No respiratory distress Abdomen: positive: Non-tender Skin: positive: Color nml Extremities: positive: Non-tender Neurologic/Psychiatric: positive: Oriented x3 - Lab Results Fish Bones: 02/01/23 05:16 01/28/23 07:25 Assessment/Plan - Problem List (1) care following delivery Impression: 37yo s/p PCD 01/31 following IOL for GHTN (2) Gestational [-induced] hypertension without significant proteinuria, complicating childbirth Impression: BP normal, aymptomatic (3) Single live Impression: Baby rooming in with mother, doing well (4) 37 weeks gestation of Impression: Anticipate discharge home tomorrow
[2023-02-03] MEDS: IBUPROFEN 600 MG TABLET PO SCH ×3 (00:41→12:57)
[2023-02-03] MEDS: ACETAMINOPHEN 500 MG TABLET PO SCH ×2 (02:13→09:45)
[2023-02-03 07:30] VITALS: O2SAT 99
[2023-02-03 08:27] VITALS: BP 137/77
--- NOTE | 2023-02-03 08:59 | DISCHARGE SUMMARY ---
"Discharge Summary Admit Date: 01/30/23 Discharge Date: 02/03/23 Discharging Provider: Juwan Seymour Code Status: Attempt Resuscitation Condition at Discharge: Good Discharge Disposition: 01 Home, Self Care - DIAGNOSES Admission Diagnoses: 37 weeks gestation Gestational hypertension malpresentation Discharge Diagnoses with Status of Each Condition: 37 weeks gestation Gestational hypertension malpresentation status post external cephalic version Failed induction of labor Status post primary low transverse section Delivery of live [place] . - HPI History of Present Illness: No acute events. Bonding with baby. Pain well controlled. 0 at times, 3 when twisting abdomen. Ambulating, voiding, tolerating PO. Bleeding minimal. Back pain improved. Exam: General: No acute distress. Alert, Oriented Abdomen: Soft, non-tender. Uterus below umbilicus. Incision clean, dry, intact Pulmonary: No respiratory distress Cardiac: Regular rate Extremities: 1+ swelling in bilateral lower extremities. No calf pain or tenderness. Psych: Appropriate mood and judgement. Bonding with baby. - CONSULTS | PROCEDURES Consultations: Anesthesia - HOSPITAL COURSE Hospital Course: Patient was brought in for external cephalic version that was successful. She then was admitted for observation for attempted cervical ripening for labor induction. As this was unsuccessful with prostagalndins and we failed to place a cervical ripening balloon, she was admitted and started on oxytocin. After 24 hours of oxytocin, she was still unchanged and we discussed section to which she agreed. section was relatively uncomplicated other than significant atony likely due to prolonged oxytocin use, but blood loss was relatively low. She did get misoprostol, methergine, and hemabate during the procedure. , she did well other than occasional controllable pain, not atypical for such a long process. She was discharge with her on postoperative day 3. weight. 3387 g - ALLERGIES Allergies/Adverse Reactions: Allergies Allergy/AdvReac Type Severity Reaction Status Date / Time amoxicillin Allergy Hives Verified 01/28/23 07:50 sulfamethoxazole Allergy Anaphylaxis Verified 01/28/23 07:50 [From Bactrim] trimethoprim [From Bactrim] Allergy Anaphylaxis Verified 01/28/23 07:50 - LABS Result Diagrams: 02/01/23 05:16 01/28/23 07:25 - FOLLOW UP Follow Up: With Juwan Seymour MD at [facility] in one week. - TIME SPENT Time Spent in Discharge (Minutes): 20"
--- NOTE | 2023-02-03 08:59 | Discharge Plan ---
Discharge Plan Problem Reviewed?: Yes Disposition: Home, Self Care Condition: Good Diet: Regular Instruction Topics: C Section Dc, Depression No Smoking: If you smoke, Please STOP! Call for help. Follow-up with: Juwan Seymour MD [Provider Admit Priv/Credential] -
[2023-02-03] MEDS: DOCUSATE SODIUM 100 MG CAPSULE PO SCH (09:18)
--- NOTE | 2023-02-03 16:16 | Labor Flowsheet ---
Labor Flowsheet Datetime Report Generated by CPN: 02/03/2023 16:16 Datetime: 01/31/2023 17:30 Membranes Ruptured Date/Time: 01/31/2023 15:21 Membranes Rupture Method: Artificial Amniotic Fluid Color: Clear Amniotic Fluid Amount: Moderate Amniotic Fluid Odor: Normal Datetime: 01/31/2023 08:36 ASSESSMENT A Monitor Mode: External US FHR Baseline Rate : 120 FHR Baseline Changes: No Baseline Change Variability: Moderate 6-25 bpm Accelerations: None Decelerations: None Category: Category I Datetime: 01/31/2023 08:30 UTERINE ACTIVITY Monitor Mode: External Resting Tone (Palpate): Relaxed Contraction Comments: unable to trace or palpate contractions Datetime: 01/31/2023 08:00 Frequency (min): 2-6 Quality: Mild Duration (sec): 30-60 Pattern: Normal: <= 5 Contractions in 10 Minutes Datetime: 01/31/2023 07:32 MEDICATIONS Pitocin (milliunits): Discontinued Datetime: 01/31/2023 07:30 VAGINAL EXAM Dilatation (cm): 0.0 Effacement (%): 40 Station: -3 Exam by: Dr. Seymour Datetime: 01/31/2023 07:28 COMMUNICATION Communication: Provider at Bedside Datetime: 01/31/2023 07:16 Communication Comments: Report given to Mag Galvez RN. I'm relinquishing care of pt at this rosalina e Datetime: 01/31/2023 07:15 Monitor Interventions for UA: [place] Adjusted Datetime: 01/31/2023 07:00 Pitocin Checklist: At Least 1 Acceleration of 15 bpm x 15 Seconds in 30 Minutes or Adequate Variabi lity; No More than 1 Late Deceleration Occurred in Past 30 Minutes; No More than 2 Variable Decelerat ions > 60 Seconds in Duration and decreasing >60 bpm in 30 minutes; No More than 5 Uterine Contractio ns in 10 Minutes for any 20 Minute Interval; Uterus Palpates Soft between Contractions Datetime: 01/31/2023 06:58 Patient Care Comments: sitting in chair Datetime: 01/31/2023 06:53 I/O Interventions: Up to BR Datetime: 01/31/2023 06:30 Comments: mod LTV x 4 min Datetime: 01/31/2023 05:53 VITAL SIGNS NBP Sys/Rosa/Mean (mmHg): 130 : 89 : 97 Pulse: 74 Respirations: 16 SpO2 (%): 100 LaborFlag: Labor Datetime: 01/31/2023 05:47 Patient Position/Activity: Semi-Fowlers Datetime: 01/31/2023 04:05 Temperature (C): 36.6 Datetime: 01/31/2023 02:06 Pain Goal: 5 Pain Assessment Comments: pt reports UC woke her up a minute ago, has been sleeping MATERNAL ASSESSMENT Level of Consciousness: Drowsy Datetime: 01/31/2023 01:00 Monitor Interventions for FHR: Ultrasound Adjusted Datetime: 01/31/2023 00:20 PATIENT CARE IV/Blood Work: IV Infusing per Order Datetime: 01/31/2023 00:05 Medication Comments: only 10-20 sec of resting time between UC's Datetime: 01/30/2023 23:37 PAIN Pain Scale: 1 Pain Presence: Intermittent Pain Type: Contraction Pain Location: Abdomen Pain Coping: Talking Through Contractions Datetime: 01/30/2023 23:21 Provider Notified (Name): Dr Lion Datetime: 01/30/2023 20:08 Stage of : Labor Notification Reason: Status Update Datetime: 01/30/2023 20:01 Hygiene: Shower Datetime: 01/30/2023 19:38 DTR's/Clonus: DTRs 1+; No Clonus Headache: Denies Nausea/Vomiting: Denies RUQ Epigastric Pain: Denies Datetime: 01/30/2023 16:54 Cervix, Consistency: Soft Cervix, Position: Anterior Datetime: 01/30/2023 16:00 Actions for Decelerations: IV Bolus; Other Datetime: 01/30/2023 10:19 Vaginal Bleeding: None Datetime: 01/30/2023 07:00 Oxygen Method: Room Air Datetime: 01/30/2023 04:15 Cervical Ripening Agents: Cytotec @ Datetime: 01/29/2023 20:00 Vital Sign Comments: bilateral LE edema noted Membrane Status: Intact Breath Sounds, Left: Clear and Equal Breath Sounds, Right: Clear and Equal TEACHING Instructional Method: Verbal; Patient Instructed; Family/Support Person Instructed Plan of Care: Plan of Care Discussed; Labor Unit Routine: Karthaus to Room; Call Strickland; Bed; Unit Personnel; Monitoring; Safety/Fall Risk Pr evention; Medications Labor/Induction: Labor Stages; Cervical Ripening; Activity Datetime: 01/29/2023 06:03 Temperature Route: Oral
== END 2023-02-03 13:00 | disposition home or self-care (01) | DRG 787 ==
LOC: WFO 07:05 → FBP 07:10 → WFO 01-29 04:59 → FBP 01-29 05:00 → UNDOFXCLIACCOM 01-30 10:45 → UNDOFXCLIRRACCOM 01-30 10:45 → OBSVTOIN 01-30 10:45 → FBP 01-30 10:59 → WFO 01-30 10:59 → INTOOBSV 01-30 11:00 → FBP 01-30 11:00 → UNDOADMOB 01-30 11:00 → OBSVTOIN 01-30 11:00 → FBP 01-31 09:14 → UNDODISIN 02-03 13:00
PROVIDERS: ADMIT Obstetrics & Gynecology; ATTEND Obstetrics & Gynecology
PROC: 10S0XZZ Reposition Products of Conception, External Approach (ICD-10-PCS; 2023-01-28)
PROC: 3E0DXGC Introduction of Other Therapeutic Substance into Mouth and Pharynx, External Approach (ICD-10-PCS; 2023-01-30)
PROC: 3E033VJ Introduction of Other Hormone into Peripheral Vein, Percutaneous Approach (ICD-10-PCS; 2023-01-30)
PROC: 10D00Z1 Extraction of Products of Conception, Low, Open Approach (ICD-10-PCS; principal; 2023-01-31 14:15)
DX: O13.4 Gestational [pregnancy-induced] hypertension without significant proteinuria, complicating childbirth (principal); N02.8 Recurrent and persistent hematuria with other morphologic changes; O26.833 Pregnancy related renal disease, third trimester; Z37.0 Single live birth; O75.89 Other specified complications of labor and delivery; O99.824 Streptococcus B carrier state complicating childbirth; Z3A.37 37 weeks gestation of pregnancy; O32.1XX0 Maternal care for breech presentation, not applicable or unspecified; O99.214 Obesity complicating childbirth; O61.0 Failed medical induction of labor
CPT/HCPCS: 36415; 59412; 80053; 82570; 84156; 85025; 86850; 86900; 86901; A9270; J2210; J2274; J7040; J7120; 59025

== ENCOUNTER 2023-02-08 00:06 | Emergency (ER) | payer OTHER ==
--- NOTE | 2023-02-08 00:34 | ED Physician Documentation ---
History of Present Illness - Stated complaint Stated Complaint: HEADACHE, HIGH BP - Chief complaint Chief Complaint: General - History obtained from History obtained from: Patient - Additonal information Additional information: HPI from patient. Patient is one week post- (c section at 37 weeks gestation). She presents due to high blood pressure readings at home this evening. She says she was seen outpatient earlier today (scheduled appointment) and was told her blood pressure readings were elevated (130s/80s). This evening, she was having readings as high as 160s SBP associated with mild global headache (predominantly bifrontal). Denies abdominal pain, visual changes, n/v . Review of Systems Eyes: reports: Reviewed and negative Cardiac: denies: Chest pain / pressure Respiratory: denies: Dyspnea GI: denies: Nausea, Vomiting Neurologic: reports: Headache PD PAST MEDICAL HISTORY - Past Medical History Cardiovascular: None Respiratory: Asthma Neuro: None Endocrine/Autoimmune: None GI: GERD : None Musculoskeletal: None Derm: None - Allergies Allergies/Adverse Reactions: Allergies Allergy/AdvReac Type Severity Reaction Status Date / Time amoxicillin Allergy Hives Verified 02/08/23 00:10 sulfamethoxazole Allergy Anaphylaxis Verified 02/08/23 00:10 [From Bactrim] trimethoprim [From Bactrim] Allergy Anaphylaxis Verified 02/08/23 00:10 - Social History Smoking Status: Never smoker PD ED PE NORMAL - Vitals Vital signs reviewed: Yes - General General: Alert and oriented X 3, No acute distress, Well developed/nourished - HEENT HEENT: PERRL, EOMI - Cardiac Cardiac: RRR, No murmur - Respiratory Respiratory: No respiratory distress, Clear bilaterally - Neuro Neuro: Alert and oriented X 3, chair car driver 2-12 intact, No motor deficit, No sensory deficit, Normal speech Eye Opening: Spontaneous Motor: Obeys Commands Verbal: Oriented GCS Score: 15 Results - Vitals Vitals: Oxygen O2 Source Room air - Labs Labs: Laboratory Tests 02/08/23 02/08/23 02/08/23 00:33 00:33 00:41 WBC 7.7 RBC 3.97 L Hgb 11.1 L Hct 34.4 L MCV 86.6 MCH 28.0 MCHC 32.3 RDW 13.6 Plt Count 332 MPV 9.1 Neut # (Auto) 4.5 Lymph # (Auto) 2.4 [place] # (Auto) 0.5 Eos # (Auto) 0.2 Baso # (Auto) 0.0 Absolute Nucleated RBC 0.00 Nucleated RBC % 0.0 Sodium 140 Potassium 3.8 Chloride 108 Carbon Dioxide 25 Anion Gap 7.0 BUN 11 Creatinine 0.5 L Estimated GFR (MDRD) 140 Glucose 88 Calcium 10.0 Magnesium 1.8 Total Bilirubin 0.2 AST 18 ALT 43 Alkaline Phosphatase 74 Total Protein 7.0 Albumin 3.8 Globulin 3.2 Albumin/Globulin Ratio 1.2 Lipase 35 Urine Color Urine Clarity Urine pH Ur Specific [place] Urine Protein Urine Glucose (UA) Urine Ketones Urine Occult Blood Urine Nitrite Urine Bilirubin Urine Urobilinogen Ur Leukocyte Esterase Urine RBC Urine WBC Ur Squamous Epith Cells Urine Bacteria Ur Microscopic Review Urine Culture Comments 02/08/23 01:07 WBC RBC Hgb Hct MCV MCH MCHC RDW Plt Count MPV Neut # (Auto) Lymph # (Auto) [place] # (Auto) Eos # (Auto) Baso # (Auto) Absolute Nucleated RBC Nucleated RBC % Sodium Potassium Chloride Carbon Dioxide Anion Gap BUN Creatinine Estimated GFR (MDRD) Glucose Calcium Magnesium Total Bilirubin AST ALT Alkaline Phosphatase Total Protein Albumin Globulin Albumin/Globulin Ratio Lipase Urine Color COLORLESS Urine Clarity CLEAR Urine pH 7.0 Ur Specific [place] <=1.005 Urine Protein NEGATIVE Urine Glucose (UA) NEGATIVE Urine Ketones NEGATIVE Urine Occult Blood MODERATE H Urine Nitrite NEGATIVE Urine Bilirubin NEGATIVE Urine Urobilinogen 0.2 (NORMAL) Ur Leukocyte Esterase NEGATIVE Urine RBC 0-5 Urine WBC 0-3 Ur Squamous Epith Cells NONE SEEN Urine Bacteria None Seen Ur Microscopic Review INDICATED Urine Culture Comments NOT INDICATED PD Medical Decision Making - ED course Complexity details: considered differential, d/w patient ED course: Patient presents with elevated blood pressure readings at home this evening, concerned about possible (post-) preeclampsia. She did not have diagnosis of preeclampsia during the , although d/c summary does indicate gestational hypertension as one of her diagnoses. Blood pressure in ED triage is 165/100, but without intervention this improved to 141/94, then 139/88. Subsequent readings during ED stay were 140s/90s. She is asymptomatic except mild bifrontal headache. UA negative for protein (moderate blood on macro, but micro negative for RBC; no other abnormalities on UA), normal CBC except h/h slightly below normal range (hgb 11.1), ER abdominal panel normal (except creatinine flagged as low (0.5)). I discussed this case, including test results, with on-call wireless sales manager (Dr. Bonilla). Plan is d/c home without new medication/rx, and someone from the wireless sales manager office will contact patient tomorrow to discuss follow-up recommendations. I relayed this to the patient and return precautions are reviewed. Departure - Departure Disposition: Home, Self Care Clinical Impression: Hypertension in , condition Condition: Good Instructions: ED Hypertension Poss Follow-Up: Leela Mack DO [Provider Admit Priv/Credential] - Comments: Your initial blood pressure in ER triage tonight was quite elevated, but, without specific intervention, subsequent repeated readings were significantly improved. While all of your blood pressures in the emergency department tonight were above normal range, except for the initial reading they were not high enough to indicate immediate/emergent threat to your health . I discussed your case with the on-call [employer] (Dr. Bonilla) including test results as well as your blood pressure readings; per this discussion, it is safe and appropriate to discharge you home at this time and without any medications. Someone from the [employer] office will contact you during the day today (Tuesday) to discuss follow- up recommendations. Forms: PCP List Discharge Date/Time: 02/08/23 02:26
[2023-02-08 00:46] LABS: BASOPHILS % (AUTO) 0.3 %; EOSINOPHILS # (AUTO) 0.2 10^3/uL (0.0-0.7); EOSINOPHILS % (AUTO) 2.5 %; HCT - HEMATOCRIT 34.4 % (37.0-47.0); HGB - HEMOGLOBIN 11.1 g/dL (12.0-16.0); LYMPHOCYTES # (AUTO) 2.4 10^3/uL (1.5-3.5); LYMPHOCYTES % (AUTO) 31.3 %; MEAN CORPUSCULAR HGB CONC 32.3 g/dL (32.0-36.0); MEAN CORPUSCULAR VOLUME 86.6 fL (81.0-99.0); MEAN PLATELET VOLUME 9.1 fL (7.9-10.8); MONOCYTES # (AUTO) 0.5 10^3/uL (0.0-1.0); MONOCYTES % (AUTO) 6.7 %; NEUTROPHILS # (AUTO) 4.5 10^3/uL (1.5-6.6); NEUTROPHILS % (AUTO) 58.7 %; PLT - PLATELET COUNT 332 10^3/uL (130-450); RED BLOOD COUNT 3.97 10^6/uL (4.20-5.40); RED CELL DISTRIBUTION WIDTH 13.6 % (12.0-15.0); WHITE BLOOD COUNT 7.7 x10^3/uL (4.8-10.8)
[2023-02-08 00:48] VITALS: O2SAT 98
[2023-02-08 01:01] LABS: ALBUMIN 3.8 g/dL (3.2-5.5); ALBUMIN/GLOBULIN RATIO 1.2 (1.0-2.2); BILIRUBIN,TOTAL 0.2 mg/dL (0.2-1.0); CREATININE 0.5 mg/dL (0.6-1.3); POTASSIUM 3.8 mmol/L (3.5-4.5)
[2023-02-08 01:19] LABS: BILIRUBIN,URINE NEGATIVE (NEGATIVE); CLARITY,URINE CLEAR (CLEAR); GLUCOSE, URINE (UA) NEGATIVE (NEGATIVE); KETONES,URINE (UA) NEGATIVE (NEGATIVE); LEUKOCYTE ESTERASE, URINE NEGATIVE (NEGATIVE); NITRITE,URINE NEGATIVE (NEGATIVE); OCCULT BLOOD,URINE MODERATE (NEGATIVE); PROTEIN,URINE NEGATIVE (NEGATIVE); UROBILINOGEN,URINE 0.2 (NORMAL) E.U./dL (NORMAL)
[2023-02-08 01:26] LABS: BACTERIA,URINE None Seen /HPF (None Seen); RBC,URINE 0-5 /HPF (0-5); SQUAMOUS EPITHELIAL CELL,UR NONE SEEN (<= Few); WBC,URINE 0-3 /HPF (0-5)
[2023-02-08 02:34] VITALS: BP 147/93
== END 2023-02-08 02:26 | disposition home or self-care (01) ==
LOC: ED 00:06
DX: O16.5 Unspecified maternal hypertension, complicating the puerperium (principal)
CPT/HCPCS: 36415; 80053; 81001; 81003; 83690; 83735; 85025; 87086; 99283

== ENCOUNTER 2023-04-13 08:00 | Outpatient (CLI) | payer OTHER ==
--- NOTE | 2023-04-13 17:02 | XRAY Report ---
PROCEDURE: Hand 3 View BILAT INDICATIONS: BILAT HAND PAIN TECHNIQUE: 5 views of the hand(s) acquired. COMPARISON: None. FINDINGS: Bones: No fractures or dislocations. No suspicious bony lesions. Soft tissues: No suspicious soft tissue calcifications or masses. IMPRESSION: No acute bony abnormality. No arthritic changes. Normal appearance of the hands. Reviewed by: Bert Wells MD on 04/13/2023 5:01 PM PST Approved by: Bert Wells MD on 04/13/2023 5:01 PM PST Station ID: [id number]
== END 2023-04-13 23:59 | disposition home or self-care (01) ==
LOC: DI.WOS 08:00
PROVIDERS: ATTEND Physician Assistant Surgical
DX: M25.531 Pain in right wrist (principal); M25.532 Pain in left wrist; G56.00 Carpal tunnel syndrome, unspecified upper limb

== ENCOUNTER 2023-05-31 08:00 | Outpatient (CLI) | payer OTHER ==
--- NOTE | 2023-05-31 12:12 | XRAY Report ---
PROCEDURE: Shoulder 3 View LT INDICATIONS: LEFT SHOULDER PAIN TECHNIQUE: 3 views of the shoulder were acquired. COMPARISON: None. FINDINGS: Bones: No fractures or dislocations. No suspicious bony lesions. Visualized ribs appear intact. Soft tissues: No suspicious soft tissue calcifications. The visualized lungs are within normal limi ts. IMPRESSION: No acute bony abnormality. No significant degenerative change. Reviewed by: Jose E Card MD on 05/31/2023 12:10 PM PST Approved by: Jose E Card MD on 05/31/2023 12:10 PM PST Station ID: [id number]
== END 2023-05-31 23:59 | disposition home or self-care (01) ==
LOC: DI.WOS 08:00
PROVIDERS: ATTEND Physician Assistant Surgical
DX: M25.512 Pain in left shoulder (principal)